=== PATIENT | male | born 1975 | race Caucasian/White ===

== ENCOUNTER 2023-02-15 11:21 | Outpatient (CLI) | payer OTHER, SELFPAY ==
--- NOTE | 2023-02-15 08:00 | W.ANESCHARGE ---
Anesthesia Charges Start Date/Time Anesthesia Start Date: 02/15/23 Anesthesia Start Time: 12:45 Stop Date/Time Anesthesia Stop Date: 02/15/23 Anesthesia Stop Time: 13:20
--- NOTE | 2023-02-15 13:25 | W.ANESCHARGE ---
Anesthesia Charges Start Date/Time Anesthesia Start Date: 02/15/23 Anesthesia Start Time: 12:45 Stop Date/Time Anesthesia Stop Date: 02/15/23 Anesthesia Stop Time: 13:20
== END 2023-02-15 11:22 | disposition home or self-care (01) ==
PROVIDERS: PCP Internal Medicine; Visit Provider Surgery
DX: Z12.11 Encounter for screening for malignant neoplasm of colon (principal); K57.30 Diverticulosis of large intestine without perforation or abscess without bleeding
CPT/HCPCS: 00811; 00812; 45378; J2704

== ENCOUNTER 2024-10-25 07:30 | Outpatient (CLI) | payer OTHER, SELFPAY | END 2024-10-25 07:31 | disposition home or self-care (01) | LOC: NFLDREF 10-28 10:10 | PROVIDERS: PCP Internal Medicine; Referring Provider Internal Medicine; Visit Provider Internal Medicine | DX: E78.5 Hyperlipidemia, unspecified (principal) | CPT/HCPCS: 80053; 80061 ==